=== PATIENT | female | born 1985 | race Caucasian/White ===

== ENCOUNTER 2021-11-06 18:42 | Emergency (ER) | payer BC ==
[2021-11-06 20:33] LABS: #Basophils 0.1 10x3/uL (0.0-0.2); #Eosinphils 0.4 10x3/uL (0.0-0.5); #Monocytes 0.6 10x3/uL (0.0-1.1); #Neutrophils 5.5 10x3/uL (1.5-8.4); %Basophils 0.7 % (0.0-2.0); %Eosinophils 3.3 % (0.0-6.0); %Lymphocytes 40.6 % (18.0-47.0); %Monocytes 5.6 % (0.0-10.0); %Neutrophils 49.5 % (40.0-75.0); Hemoglobin 11.6 g/dL (12.0-15.5); Mean Corpuscular HGB CONC 31.1 g/dL (32.0-36.0); Mean Corpuscular Hemoglobin 25.2 pg (27.0-33.0); Mean Corpuscular Volume 81.1 fl (81.6-98.3); Mean Platelet Volume 9.4 fl (7.4-10.4); Platelet Count 415 10x3/uL (150-450); RBC Distribution Width 16.5 % (11.5-14.5)
[2021-11-06 20:42] LABS: BHCG - Serum Negative (NEGATIVE); Pregs Control Background? CLEAR/WHITE (CLR/WHITE); Pregs Control Bar Appear? YES (CONTROL BAR)
[2021-11-06 20:43] LABS: ALT (SGPT) 31 U/L (8-55); AST (SGOT) 34 U/L (5-34); Albumin 4.3 g/dL (3.5-5.0); Alkaline Phosphatase 94 U/L (40-110); Anion Gap 13 mmol/L (10-20); BUN (Urea Nitrogen) 12 mg/dL (7.0-18.7); Bilirubin, Total 0.3 mg/dL (0.2-1.2); Calc. Creatinine Clearance 0 mL/min (70-130); Calcium 8.6 mg/dL (7.8-10.44); Carbon Dioxide 25 mmol/L (22-29); Chloride 102 mmol/L (98-107); Globulin 3.6 g/dL (2.4-3.5); Glucose 90 mg/dL (70-105); Lipase 31 U/L (8-78); Potassium 3.3 mmol/L (3.5-5.1); Protein, Total 7.9 g/dL (6.0-8.3); Sodium 137 mmol/L (136-145)
[2021-11-06] MEDS ORDERED: Meclizine HCl 25 MG TAB ONE (22:05)
== END 2021-11-06 22:30 | disposition home or self-care (01) ==
LOC: CSHERS 18:42
DX: U07.1 COVID-19 (principal)
CPT/HCPCS: 71045; 80053; 83690; 84484; 84703; 85025; 93005

== ENCOUNTER 2021-11-12 16:41 | Inpatient (IN) | payer BC ==
[2021-11-12] MEDS ORDERED: Ondansetron PF 4 MG/2 ML Vial ONE (17:53)
[2021-11-12 18:26] LABS: #Basophils 0.1 10x3/uL (0.0-0.2); #Eosinphils 0.4 10x3/uL (0.0-0.5); #Monocytes 0.6 10x3/uL (0.0-1.1); #Neutrophils 5.9 10x3/uL (1.5-8.4); %Basophils 0.5 % (0.0-2.0); %Eosinophils 3.4 % (0.0-6.0); %Lymphocytes 34.1 % (18.0-47.0); %Neutrophils 55.7 % (40.0-75.0); Hemoglobin 11.9 g/dL (12.0-15.5); Mean Corpuscular HGB CONC 30.1 g/dL (32.0-36.0); Mean Corpuscular Hemoglobin 25.1 pg (27.0-33.0); Mean Corpuscular Volume 83.5 fl (81.6-98.3); Mean Platelet Volume 9.4 fl (7.4-10.4); Platelet Count 376 10x3/uL (150-450); RBC Distribution Width 16.6 % (11.5-14.5); Red Blood Cell (RBC) Count 4.74 10x6/uL (3.90-5.03); White Blood Cell (WBC) Count 10.5 10x3/uL (3.5-10.5)
[2021-11-12 18:26] LABS: Actual Bicarbonate (HCO3a) 25.4 mEq/L (22-28); Base Excess (BEa) 0.9 mEq/L (-2.0 to +3.0); CO2 Tension 40.6 mmHg (35.0-45.0); Carboxyhemoglobin (COHb) 0.1 gm% (0.0-3.0); Hemoglobin (Hb) 12.7 g/dL (12.0-16.0); O2 Tension (PaO2), arterial 62.2 mmHg (80.0-100.0); Potassium - ABG Lab 3.7 mmol/L (3.70-5.30); Puncture Site LRA; pH, Arterial 7.42 (7.35-7.45)
[2021-11-12 18:33] LABS: BHCG - Serum Negative (NEGATIVE); Pregs Control Background? CLEAR/WHITE (CLR/WHITE); Pregs Control Bar Appear? YES (CONTROL BAR)
[2021-11-12 18:39] LABS: D-Dimer Test 0.29 mg/L FEU (0.19-0.50); PTT 28.3 sec (22.0-33.0); Prothrombin Time 10.7 sec (9.5-12.1)
[2021-11-12 18:40] LABS: ALT (SGPT) 29 U/L (8-55); AST (SGOT) 43 U/L (5-34); Alkaline Phosphatase 88 U/L (40-110); Anion Gap 16 mmol/L (10-20); BUN (Urea Nitrogen) 8 mg/dL (7.0-18.7); Bilirubin, Total 0.2 mg/dL (0.2-1.2); Calc. Creatinine Clearance 0 mL/min (70-130); Calcium 9.1 mg/dL (7.8-10.44); Carbon Dioxide 25 mmol/L (22-29); Chloride 102 mmol/L (98-107); Globulin 4.1 g/dL (2.4-3.5); Glucose 100 mg/dL (70-105); Protein, Total 8.1 g/dL (6.0-8.3); Sodium 139 mmol/L (136-145)
[2021-11-12 18:43] LABS: Acetaminophen Less than 6.0 mcg/mL (10.0-30.0); Alcohol Less than 10 mg/dL (Less than 10); CK (CPK) 363 U/L (29-168); Magnesium 1.9 mg/dL (1.6-2.6); Salicylate Less than 8.0 mg/dL (15.0-30.0)
[2021-11-12 19:25] LABS: Amphetamine Not Detected (NotDetected); Barbiturates Screen Not Detected (NotDetected); Benzodiazepine Screen Not Detected (NotDetected); Cocaine Metabolite Screen Not Detected (NotDetected); Methadone Not Detected (NotDetected); Methamphetamine Not Detected (NotDetected); Opiate Screen Not Detected (NotDetected); Oxycodone Screen Not Detected (NotDetected); Phencyclidine (PCP) Not Detected (NotDetected); THC/Cannabinoid Screen Not Detected (NotDetected); Tricyclic Screen Not Detected (NotDetected)
[2021-11-12 19:32] LABS: Thyroid Stimulating Hormone 155.3828 uIU/mL (0.35-4.94)
[2021-11-12 19:41] LABS: SARS-CoV-2 NAA Rapid Test Not Detected (NotDetected)
[2021-11-12 20:29] LABS: Free T4 (Free Thyroxine) Less than 0.40 ng/dL (0.70-1.48)
[2021-11-12] MEDS ORDERED: Cepastat Lozenges 1 LOZ PO PRN (22:14)
[2021-11-12] MEDS ORDERED: Oxymetazoline HCl 0.05% ( 15 ML ) NASAL SCH (23:30)
[2021-11-12] MEDS ORDERED: LEVOTHYROXINE SODIUM IVPB SCH (23:45)
[2021-11-12] MEDS ORDERED: SODIUM CHLORIDE 0.9% IVPB SCH (23:45)
[2021-11-13] MEDS: Sodium Chloride 0.9% 1,000 ML IV SCH ×2 (00:24→13:41)
[2021-11-13 00:46] VITALS: BMI 44.1
[2021-11-13 04:18] LABS: #Basophils 0.1 10x3/uL (0.0-0.2); #Eosinphils 0.4 10x3/uL (0.0-0.5); #Monocytes 0.5 10x3/uL (0.0-1.1); #Neutrophils 4.8 10x3/uL (1.5-8.4); %Basophils 0.6 % (0.0-2.0); %Eosinophils 3.9 % (0.0-6.0); %Lymphocytes 39.5 % (18.0-47.0); %Monocytes 5.3 % (0.0-10.0); %Neutrophils 50.5 % (40.0-75.0); Hemoglobin 10.4 g/dL (12.0-15.5); Mean Corpuscular HGB CONC 29.7 g/dL (32.0-36.0); Mean Corpuscular Hemoglobin 25.1 pg (27.0-33.0); Mean Corpuscular Volume 84.5 fl (81.6-98.3); Mean Platelet Volume 9.8 fl (7.4-10.4); Platelet Count 331 10x3/uL (150-450); RBC Distribution Width 16.7 % (11.5-14.5); Red Blood Cell (RBC) Count 4.14 10x6/uL (3.90-5.03); White Blood Cell (WBC) Count 9.5 10x3/uL (3.5-10.5)
[2021-11-13 04:25] LABS: Anion Gap 14 mmol/L (10-20); BUN (Urea Nitrogen) 7 mg/dL (7.0-18.7); Calc. Creatinine Clearance 157 mL/min (70-130); Calcium 8.2 mg/dL (7.8-10.44); Carbon Dioxide 26 mmol/L (22-29); Chloride 103 mmol/L (98-107); Glucose 103 mg/dL (70-105); Potassium 3.8 mmol/L (3.5-5.1); Sodium 139 mmol/L (136-145)
[2021-11-13 06:19] LABS: Platelet Morphology Comment Appears Adequate
[2021-11-13 06:20] LABS: Anisocytosis SLIGHT = 6-15 cells (100X) (0-5/hpf); Macrocytosis SLIGHT = 6-15 cells (100X) (0-5/hpf); Microcytosis SLIGHT = 6-15 cells (100X) (0-5/hpf); Stomatocytes SLIGHT = 2-5 cells (100X) (0-1/hpf)
[2021-11-13] MEDS ORDERED: Hydrocortisone Sod Succ/PF 250 mg/2 ml Vial SLOW IVP SCH (09:00)
[2021-11-13] MEDS: Enoxaparin Sodium 40 MG/0.4 ML SYRINGE SC SCH (10:20)
[2021-11-13] MEDS ORDERED: Levothyroxine Sodium 100 MCG TAB PO SCH (12:15)
[2021-11-13] MEDS ORDERED: Cosyntropin 250 MCG VIAL SLOW IVP SCH (12:15)
[2021-11-13 17:45] LABS: T4 Less than 2.0 ug/dL (4.87-11.72)
[2021-11-14] MEDS: Meclizine HCl 12.5 MG TAB PO PRN ×2 (00:02→09:15)
[2021-11-14] MEDS: Sodium Chloride 0.9% 1,000 ML IV SCH ×2 (03:30→16:34)
[2021-11-14] MEDS ORDERED: Levothyroxine Sodium 100 MCG TAB PO SCH (06:00)
[2021-11-14] MEDS ORDERED: Acetaminophen 325 MG TAB PO PRN (08:59)
[2021-11-14] MEDS: Gabapentin 300 MG CAP PO SCH ×2 (09:14→15:47)
[2021-11-14] MEDS: Enoxaparin Sodium 40 MG/0.4 ML SYRINGE SC SCH (09:15)
[2021-11-14] MEDS ORDERED: GUAIFENESIN SF SOLN 200 MG/10 ML UDCUP PO PRN (11:35)
[2021-11-14] MEDS ORDERED: Artificial Tear Sol 15 ML BOT EA EYE PRN (11:35)
[2021-11-14] MEDS ORDERED: Calcium Carbonate 500 MG ChewTAB PO PRN (11:35)
[2021-11-14] MEDS ORDERED: HYDROcodone/Acetaminophen 5/325 mg Tablet PO PRN (11:35)
[2021-11-14] MEDS ORDERED: hydrALAZINE 20 MG/ML VIAL SLOW IVP PRN (11:35)
[2021-11-14] MEDS ORDERED: Loratadine 10 MG TAB PO PRN (11:35)
[2021-11-14] MEDS ORDERED: Ondansetron ODT 4 MG TAB PO PRN (11:35)
[2021-11-14] MEDS ORDERED: Bisacodyl 5 MG TAB PO PRN (11:35)
[2021-11-14] MEDS ORDERED: Hydrocerin (Eucerin) Cream 120 gm Jar TOP PRN (11:35)
[2021-11-14] MEDS ORDERED: Sodium Chloride 0.65% Nasal 44 ML BOT EA NARE PRN (11:35)
[2021-11-14] MEDS ORDERED: Senokot S 8.6-50 MG TAB PO PRN (11:35)
[2021-11-14] MEDS ORDERED: Loperamide HCl 2 MG CAP PO PRN (11:35)
[2021-11-14] MEDS ORDERED: Ondansetron PF 4 MG/2 ML Vial IVP PRN (11:35)
[2021-11-14 16:46] VITALS: BP 103/68; TEMP 97.3
== END 2021-11-14 18:15 | disposition home or self-care (01) | DRG 644 ==
LOC: CSHERS 16:41 → CSHERHOLD 23:48 → CSHTELE 11-13 08:49
PROVIDERS: ADMIT Family Medicine; ATTEND Internal Medicine
DX: E89.0 Postprocedural hypothyroidism (principal); J96.10 Chronic respiratory failure, unspecified whether with hypoxia or hypercapnia; Z68.41 Body mass index [BMI] 40.0-44.9, adult; J98.11 Atelectasis; G62.9 Polyneuropathy, unspecified; Z20.822 Contact with and (suspected) exposure to COVID-19; E66.01 Morbid (severe) obesity due to excess calories; Z91.013 Allergy to seafood; Z86.16 Personal history of COVID-19; Z79.899 Other long term (current) drug therapy; Z79.890 Hormone replacement therapy; Z79.52 Long term (current) use of systemic steroids; Z85.850 Personal history of malignant neoplasm of thyroid; Z87.01 Personal history of pneumonia (recurrent); Z99.81 Dependence on supplemental oxygen; Z91.14 Patient's other noncompliance with medication regimen; Z85.71 Personal history of Hodgkin lymphoma
CPT/HCPCS: 36415; 36416; 36600; 70450; 71045; 71275; 80048; 80053; 80306; 80307; 82533; 82550; 82805; 83605; 83735; 83880; 84436; 84439; 84443; 84481; 84484; 84703; 85025; 85379; 85610; 85652; 85730; 86140; 87040; 93005; 94760; J1650; J1720; J2405; J3490; J7050; U0002

== ENCOUNTER 2022-08-25 09:37 | Emergency (ER) | payer BC ==
[2022-08-25] MEDS ORDERED: Ketorolac Tromethamine 30 MG/ML VIAL ONE (10:45)
[2022-08-25 11:02] LABS: #Basophils 0.1 10x3/uL (0.0-0.2); #Eosinphils 0.3 10x3/uL (0.0-0.5); #Monocytes 0.6 10x3/uL (0.0-1.1); #Neutrophils 6.2 10x3/uL (1.5-8.4); %Basophils 0.5 % (0.0-2.0); %Eosinophils 2.8 % (0.0-6.0); %Lymphocytes 28.4 % (18.0-47.0); %Monocytes 5.9 % (0.0-10.0); %Neutrophils 62.1 % (40.0-75.0); Hemoglobin 12.3 g/dL (12.0-15.5); Mean Corpuscular HGB CONC 32.5 g/dL (32.0-36.0); Mean Corpuscular Hemoglobin 28.9 pg (27.0-33.0); Mean Corpuscular Volume 89.2 fl (81.6-98.3); Mean Platelet Volume 9.6 fl (7.4-10.4); Platelet Count 401 10x3/uL (150-450); Red Blood Cell (RBC) Count 4.25 10x6/uL (3.90-5.03)
[2022-08-25 11:12] LABS: BHCG - Serum Negative (NEGATIVE); Pregs Control Background? CLEAR/WHITE (CLR/WHITE); Pregs Control Bar Appear? YES (CONTROL BAR)
[2022-08-25 11:14] LABS: MONO NEGATIVE CONTROL ZONE White (Negative) (White); Mononucleosis NEGATIVE (NEGATIVE)
[2022-08-25 11:15] LABS: MONO POSITIVE CONTROL Pink Line (Positive) (PINK/RED)
[2022-08-25 11:19] LABS: ALT (SGPT) 44 U/L (8-55); AST (SGOT) 58 U/L (5-34); Albumin 4.1 g/dL (3.5-5.0); Alkaline Phosphatase 87 U/L (40-110); Anion Gap 14 mmol/L (10-20); BUN (Urea Nitrogen) 14 mg/dL (7.0-18.7); Bilirubin, Total 0.4 mg/dL (0.2-1.2); Calc. Creatinine Clearance 0 mL/min (70-130); Calcium 9.3 mg/dL (7.8-10.44); Carbon Dioxide 26 mmol/L (22-29); Chloride 100 mmol/L (98-107); Estimated GFR 57; Globulin 4.2 g/dL (2.4-3.5); Glucose 117 mg/dL (70-105); Potassium 4.1 mmol/L (3.5-5.1); Protein, Total 8.3 g/dL (6.0-8.3); Sodium 136 mmol/L (136-145)
[2022-08-25] MEDS ORDERED: Iopamidol 300 61% 100 ML VIAL FS ONE (14:22)
== END 2022-08-25 13:35 | disposition home or self-care (01) ==
LOC: CSHERS 09:37
DX: K11.20 Sialoadenitis, unspecified (principal); R59.0 Localized enlarged lymph nodes
CPT/HCPCS: 36415; 70491; 80053; 84703; 85025; 86308; 96374; J1885; Q9967

== ENCOUNTER 2022-09-20 07:52 | Outpatient (CLI) | payer BC | END 2022-09-20 07:53 | disposition home or self-care (01) | LOC: CSHCT 07:52 | PROVIDERS: ATTEND Student in an Organized Health Care Education/Training Program | DX: R59.0 Localized enlarged lymph nodes (principal); L08.9 Local infection of the skin and subcutaneous tissue, unspecified; Z85.72 Personal history of non-Hodgkin lymphomas | CPT/HCPCS: 70491 ==

== ENCOUNTER 2023-06-23 14:53 | Emergency (ER) | payer BC ==
[2023-06-23 15:28] LABS: #Basophils 0.1 10x3/uL (0.0-0.2); #Eosinphils 0.3 10x3/uL (0.0-0.5); #Monocytes 0.6 10x3/uL (0.0-1.1); #Neutrophils 5.8 10x3/uL (1.5-8.4); %Basophils 0.8 % (0.0-2.0); %Eosinophils 2.8 % (0.0-6.0); %Lymphocytes 33.7 % (18.0-47.0); %Monocytes 6.1 % (0.0-10.0); %Neutrophils 56.2 % (40.0-75.0); Hematocrit 38.8 % (34.9-44.5); Hemoglobin 12.1 g/dL (12.0-15.5); Mean Corpuscular HGB CONC 31.2 g/dL (32.0-36.0); Mean Corpuscular Hemoglobin 26.7 pg (27.0-33.0); Mean Corpuscular Volume 85.5 fl (81.6-98.3); Mean Platelet Volume 9.7 fl (7.4-10.4); Platelet Count 417 10x3/uL (150-450); RBC Distribution Width 15.1 % (11.5-14.5); Red Blood Cell (RBC) Count 4.54 10x6/uL (3.90-5.03); White Blood Cell (WBC) Count 10.4 10x3/uL (3.5-10.5)
[2023-06-23] MEDS ORDERED: Ketorolac Tromethamine 30 MG/ML VIAL ONE (15:32)
[2023-06-23 15:37] LABS: BHCG - Serum Negative (NEGATIVE); Pregs Control Background? CLEAR/WHITE (CLR/WHITE); Pregs Control Bar Appear? YES (CONTROL BAR)
[2023-06-23 15:42] LABS: ALT (SGPT) 35 U/L (8-55); AST (SGOT) 48 U/L (5-34); Albumin 4.2 g/dL (3.5-5.0); Alkaline Phosphatase 92 U/L (40-110); Anion Gap 15 mmol/L (10-20); BUN (Urea Nitrogen) 11 mg/dL (7.0-18.7); Bilirubin, Total 0.2 mg/dL (0.2-1.2); Calc. Creatinine Clearance 0 mL/min (70-130); Calcium 9.4 mg/dL (7.8-10.44); Carbon Dioxide 24 mmol/L (22-29); Chloride 103 mmol/L (98-107); Estimated GFR 67; Globulin 4.3 g/dL (2.4-3.5); Glucose 102 mg/dL (70-105); Magnesium 2.1 mg/dL (1.6-2.6); Potassium 4.2 mmol/L (3.5-5.1); Protein, Total 8.5 g/dL (6.0-8.3); Sodium 138 mmol/L (136-145)
[2023-06-23 15:48] LABS: Troponin I Less than 0.010 ng/mL (< 0.028)
== END 2023-06-23 16:54 | disposition home or self-care (01) ==
LOC: CSHERS 14:53
DX: R51.9 Headache, unspecified (principal)
CPT/HCPCS: 36416; 70450; 80053; 83735; 84484; 84703; 85025; 93005; 96374; J1885

== ENCOUNTER 2024-05-16 12:32 | Outpatient (CLI) | payer BC | END 2024-05-16 12:33 | disposition home or self-care (01) | LOC: CSHULT 12:32 | PROVIDERS: ATTEND Internal Medicine Endocrinology, Diabetes & Metabolism | DX: Z85.850 Personal history of malignant neoplasm of thyroid (principal); C85.90 Non-Hodgkin lymphoma, unspecified, unspecified site | CPT/HCPCS: 76536 ==

== ENCOUNTER 2024-10-25 08:43 | Outpatient (CLI) | payer BC ==
[2024-10-25 09:32] LABS: Hematocrit 39.8 % (34.9-44.5)
[2024-10-25 09:39] LABS: BHCG - Serum Negative (NEGATIVE); Pregs Control Background? CLEAR/WHITE (CLR/WHITE); Pregs Control Bar Appear? YES (CONTROL BAR)
== END 2024-10-25 08:44 | disposition home or self-care (01) ==
LOC: CSHLAB 08:43
PROVIDERS: ATTEND Otolaryngology
DX: Z01.812 Encounter for preprocedural laboratory examination (principal); R22.1 Localized swelling, mass and lump, neck; R06.00 Dyspnea, unspecified; R13.10 Dysphagia, unspecified; Z85.72 Personal history of non-Hodgkin lymphomas; J35.1 Hypertrophy of tonsils
CPT/HCPCS: 84703; 85014

== ENCOUNTER 2024-10-28 08:12 | Observation (INO) | payer BC ==
[2024-10-28] MEDS ORDERED: Famotidine/PF 20 mg/2ml Vial ONE (09:13)
[2024-10-28] MEDS ORDERED: Midazolam HCl 2 mg/2 ml Vial ONE (09:13)
[2024-10-28] MEDS ORDERED: Ondansetron ODT 4 MG TAB PO PRN (10:30)
[2024-10-28] MEDS ORDERED: Ondansetron PF 4 MG/2 ML Vial IVP PRN (10:30)
[2024-10-28] MEDS ORDERED: HYDROcodone/Acetaminophen 10/325 mg Tablet PO PRN ×2 (10:33→14:53)
[2024-10-28] MEDS ORDERED: HYDROcodone/Acetaminophen 5/325 mg Tablet PO PRN ×2 (10:33→14:54)
[2024-10-28] MEDS ORDERED: fentaNYL 50 mcg/mL 1 mL Vial ONE ×2 (11:38→13:23)
[2024-10-28] MEDS ORDERED: PROPOFOL 20 ML ONE (11:38)
[2024-10-28] MEDS ORDERED: Dexamethasone 20 MG/5 ML VIAL ONE (11:39)
[2024-10-28] MEDS ORDERED: Lidocaine 1% PF 5 ML VIAL ONE (11:39)
[2024-10-28] MEDS ORDERED: Ondansetron PF 4 MG/2 ML Vial ONE (11:39)
[2024-10-28] MEDS ORDERED: Oxymetazoline HCl 0.05% ( 15 ML ) ONE (12:12)
[2024-10-28] MEDS ORDERED: ePHEDrine Sulfate 50 MG/10 ML VIAL ONE (12:32)
[2024-10-28] MEDS ORDERED: SUGAMMADEX SODIUM 200 MG/2 ML VIAL ONE (12:35)
[2024-10-28] MEDS ORDERED: LEVOTHYROXINE SODIUM 200 MCG PO SCH ×2 (13:00→17:00)
[2024-10-28 14:28] VITALS: BMI 35.9
[2024-10-28] MEDS: Acetaminophen 325 MG TAB PO SCH (15:03)
[2024-10-28] MEDS: HYDROmorphone 0.5 MG/0.5 ML SYRINGE SLOW IVP PRN (15:13)
[2024-10-28] MEDS: Ibuprofen 200 MG TAB PO SCH (17:36)
[2024-10-28] MEDS: Morphine 4 MG/ML VIAL SLOW IVP PRN (18:20)
[2024-10-28] MEDS ORDERED: Hydrocodone-Acetamin 15 ML UDCUP PO PRN (18:23)
[2024-10-28] MEDS: Lidocaine Viscous Sol 2% 15 ml UD Cup SSW PRN (18:27)
[2024-10-28] MEDS: Acetaminophen 650 MG/20.3 ML UDCUP PO SCH (20:43)
[2024-10-28] MEDS: busPIRone HCl 5 MG TAB PO SCH (20:44)
[2024-10-28] MEDS: Acetaminophen 650 MG Suppository PR SCH (20:46)
[2024-10-28] MEDS: Lactated Ringer's 1,000 ML IV SCH (20:49)
[2024-10-28] MEDS: Famotidine 20 MG TAB PO SCH (21:08)
[2024-10-28] MEDS: Ibuprofen 100 MG/5 ML UDCUP PO SCH (23:51)
[2024-10-29] MEDS: Levothyroxine Sodium 100 MCG TAB PO SCH (05:22)
[2024-10-29] MEDS: Hydrocodone-Acetamin 15 ML UDCUP PO PRN (09:32)
[2024-10-29 12:21] VITALS: BP 114/75; TEMP 97.6
== END 2024-10-29 14:40 | disposition home or self-care (01) ==
LOC: CSHSDC 08:12 → CSHTELE 13:55
PROVIDERS: ADMIT Otolaryngology; ATTEND Otolaryngology
PROC: 0CTPXZZ Resection of Tonsils, External Approach (ICD-10-PCS; principal; 2024-10-29)
DX: J35.1 Hypertrophy of tonsils (principal); J45.909 Unspecified asthma, uncomplicated; E03.9 Hypothyroidism, unspecified; F41.9 Anxiety disorder, unspecified; F32.A Depression, unspecified; Z85.72 Personal history of non-Hodgkin lymphomas; Z87.891 Personal history of nicotine dependence; Z90.89 Acquired absence of other organs; Z91.013 Allergy to seafood; Z79.890 Hormone replacement therapy; Z79.51 Long term (current) use of inhaled steroids; Z79.899 Other long term (current) drug therapy
CPT/HCPCS: 88184; 88304; 94760; 94762; J1100; J1171; J2250; J2272; J2405; J2704; J3010; J3490; J7120